=== PATIENT | male | born 1965 | race Caucasian/White ===

== ENCOUNTER 2022-12-06 07:00 | Day surgery (SDC) | payer OTHER ==
[2022-12-06] VITALS (227 sets, daily range): BP systolic 59–177; BP diastolic 36–109
[~2022-12-06] VITALS: Ht 182.9 cm; Wt 92.0 kg
[~2022-12-06 07:00] MED LIST: AMBIEN5 MG PO; AMITRIPTYLINE H75 M1; ATENOLOL25 MG PO; CLOPIDOGREL75 MG PO; GABAPENTIN100 MG PO; GRALISE; LIPITOR20 M1 PO; METFORMIN HCL500 M1 PO
--- NOTE | 2022-12-06 07:05 | NUR ---
Patient arrived to the [facility] suite, identification and demographics confirmed. Patient to room 10, AAO, ambulatory, vitals obtained, ID/allergy/fall bands placed, changed into hospital gown, MARILEE hose, and non-slip socks. Procedure and timeline explained for treatment and discharge. All questions answered and the patient presents no concerns at this time.
[2022-12-06 07:37] LABS: BASO% 0.6 % (0-3); EOS% 3.4 % (0-8); HEMATOCRIT 44.1 % (39.0-50.0); HEMOGLOBIN 14.6 g/dl (14.0-18.0); IMMATURE GRANULOCYTES 0.2 % (0.0-5.0); LYMPH% 32.3 % (15-41); MEAN CELL VOLUME 89.5 fL CALC (80.0-100.0); MEAN CORPUSCULAR HGB 29.6 pG CALC (26.0-32.0); MEAN CORPUSCULAR HGB CONC 33.1 g/dL CAL (32.0-36.0); MONO% 9.1 % (2-13); NEUT# 5.76 thou/uL (1.82-7.42); NEUT% 54.4 % (42-76); RED BLOOD COUNT 4.93 mill/uL (4.70-6.10); RED CELL DISTRI WIDTH 14.3 % (11.5-15.5)
--- NOTE | 2022-12-06 07:40 | NUR ---
Dr. Carlos Morgan telephoned with patient intake information including usage, dose, last dose/time taken and initial vital signs. Patient history and allergies reviewed with MD. Orders received for 10 + 5 prn mg PO Valium and 0.3 mg PO Clonidine now. Will reassess per protocol in 1.5 hours and update MD withassessment and vitals.
[2022-12-06 07:49] LABS: ALBUMIN 4.6 g/dL (3.2-5.0); ALKALINE PHOSPHATASE 113 u/l (38-126); ANION GAP 14 (6-22 (CALC)); BILIRUBIN, TOTAL 0.6 mg/dL (0.2-1.3); BUN 17 mg/dL (9-20); BUN/CREATININE RATIO 25 (12-20 (CALC)); CARBON DIOXIDE 29 mmol/l (22-30); CHLORIDE 101 mmol/l (95-108); CREATININE 0.7 mg/dL (0.7-1.3); GFR FOR AFR.AMER. > 60 ML/MIN (>=60 (CALC)); GFR OTHER RACES > 60 ML/MIN (>=60 (CALC)); POTASSIUM 4.5 mmol/l (3.5-5.1); SGOT/AST 25 u/l (17-59); SODIUM 140 mmol/l (137-146); TOTAL PROTEIN 7.6 g/dL (6.3-8.2)
--- NOTE | 2022-12-06 08:00 | NUR ---
Patient medicated per MD orders. In addition to Clonidine and Valium, patient received 1000 mcg B12 PO, 20 mg Pepcid PO, and Scopolamine TD patch. Medication indication and education provided prior to adminstration.
--- NOTE | 2022-12-06 08:45 | NUR ---
Patient resting comfortably in bed. Easily aroused, maintains focus, and drifts back to sleep. No signs of active withdrawal or distress noted at this time. Continuous SPO2, rhythm, and respiratory monitoring initiated. IVF @ 250 mL/HR, room air, VSS.
--- NOTE | 2022-12-06 09:30 | NUR ---
MD updated with 1.5 hour reassessment. Patient sleeping and vital signs are within pre-treatment parameters. No additional Clonidine or Valium at this time. Continuous monitoring in place.
--- NOTE | 2022-12-06 10:05 | NUR ---
Patient resting comfortably in bed. Easily aroused, maintains focus, and drifts back to sleep. No signs of withdrawal or distress noted at this time.
--- NOTE | 2022-12-06 10:25 | NUR ---
Dr. Morgan at bedside for evaluation of foot wound and pre-procedure assessment.
--- NOTE | 2022-12-06 11:00 | NUR ---
Nebulized treatment and Protonix administered per orders. Patient easily aroused, follows commands, appropriate conversation, reports no distress or withdrawal symtoms. Induction to begin in approximately 15 minutes.
--- NOTE | 2022-12-06 11:12 | NUR ---
Induction Note Patient to [facility] procedure room 10. Time out performed at 1112, patient placed on automatic dispenser mechanic, Lui hugger, and bilateral wrist restraints were applied for ET tube protection. Versed 5mg given IV push at 1113, tourniquet applied to LEFT arm, lidocaine 100 mg IVP given at 1115, followed by Rocuronium 10mg IVP at 1115 and held for 45 seconds. Propofol 140 mg IVP given at 1117. Succinylcholine 80 mg IVP at 1118. Smooth intubation with 7.5 ETT @ 22L at 1120. Positive color change on CO2 indicator. Positive auscultation for air exchange. Patient placed on ventilator for spontaneous ventilation. Placed on Propofol IV drip at 1120. OG inserted at 1123. Positive air on auscultation. Positive gastric content. Stomach washed at this time.
--- NOTE | 2022-12-06 11:35 | NUR ---
OG close note Stomach washed at this time. Naltrexone 50 mg with Clonidine 0.3 mg via OG tube. OG will be clamped for 45 minutes.
--- NOTE | 2022-12-06 12:20 | NUR ---
OG open note OG open at this time. Gastric content draining into drainage bag. OG to drain for 45 minutes. Propofol will be titrated down based on patient.
--- NOTE | 2022-12-06 13:10 | NUR ---
OG close note Stomach washed at this time. Naltrexone 50 mg with Clonidine 0.3 mg via OG tube. OG will be clamped for 45 minutes.
[2022-12-06] MEDS ORDERED: NALTREXONE50 MG PO (14:00)
[2022-12-06] MEDS ORDERED: CLONIDINE0.1 MG PO (14:00)
[2022-12-06] MEDS ORDERED: KLONOPIN2 MG PO (14:00)
--- NOTE | 2022-12-06 14:50 | NUR ---
OG close note Stomach washed at this time. Naltrexone 50 mg with Clonidine 0.2 mg via OG tube. OG will be clamped for 45 minutes.
--- NOTE | 2022-12-06 16:25 | NUR ---
No OG close at this time. Patient minimally reacting to treatment. Vitals, total Naltrexone & Clonidine, current Propofol infusion rate, treatment duration, and patient assessment discussed with Dr. Morgan. No orders for medication administration at this time. OG will remain open to allow time for patient to continue reacting to therapy.
--- NOTE | 2022-12-06 16:55 | NUR ---
OG close note Stomach washed at this time. Naltrexone 12.5 mg with Clonidine 0.2 mg via OG tube. OG will be clamped for 45 minutes.
--- NOTE | 2022-12-06 17:56 | NUR ---
Extubation note Closing medications given Benadryl 50mg IV push, Decadron 10mg IV push,Magnesium 4 grams IV, Zofran 8mg IV push, Octreotide 100mcg SC. Stomach washed out prior to extubation. Suctioned gastric content. OG removed. Patient extubated. Propofol Discontinued. Wrist restraints removed. Lui hugger Removed. See [facility] Moderate sedate recovery record for further notes and assessment.
--- NOTE | 2022-12-06 18:46 | NUR ---
CLEANSED OF SMALL SOFT BROWN STOOL. TOLERATED WELL. PT MOVING ABOUT IN BED. RESPONDS TO VERBAL STIMULI. VSS. TRANSPORTED TO MO VIA STRETCHER IN NO DISTRESS
--- NOTE | 2022-12-06 18:50 | NUR ---
Patient to room 291 in no acute distress. Transfer of care to Medical/Surgical [facility] SY Regan at bedside. 4L NC placed per orders, IVF to continue at 100ml/hr. VSS. Patient resting comfortably, no adventitious breath sounds appreciated. Bed alarm set. See chart/EMAR for procedural details and assessments. Handoff of care at the time of this note.
--- NOTE | 2022-12-06 18:50 | NUR ---
BEDSIDE REPORT RECEIVED FROM SY SPEARS. PATIENT RESTLESS. VSS, NO DISTRESS NOTED. BED IN LOW POSITION, LOCKED AND ALARM ACTIVATED.
--- NOTE | 2022-12-06 20:42 | NUR ---
2 PERSON ASSIST TO RESTROOM; TOLERATED WELL.
--- NOTE | 2022-12-07 00:18 | NUR ---
LAYING IN BED, RESTLESS. DENIES PAIN AT THIS TIME. NO DISTRESS NOTED. CALL LIGHT WITHIN REACH. BED ALARM ACTIVE.
[2022-12-07 03:33] VITALS: BP 120/46
--- NOTE | 2022-12-07 04:30 | NUR ---
PATIENT REMAINS RESTLESS. HAS NOT SLEPT ALL NIGHT IN SPITE OF SCHEDULED AND PRN MEDS GIVEN. NO COMPLAINTS OF PAIN. NO DISTRESS NOTED. CALL LIGHT WITHIN REACH. BED ALARM ACTIVE.
--- NOTE | 2022-12-07 05:02 | NUR ---
FULL ROLL INSPECTOR AT BEDSIDE FOR MORNING LABS. PATIENT BECAME AGITATED AND COMBATIVE. LABS WERE NOT DRAWN AT THIS TIME, WILL TRY LATER THIS A.M.
--- NOTE | 2022-12-07 05:30 | NUR ---
PATIENT BROKE J-LOOP LINE OF IV ACCESS, UNABLE TO RE-CONNECT. IV ACCESS DISCONTINUED, CATHETER INTACT. REFUSES TO HAVE ANOTHER IV SITE ACCESSED. AT THIS TIME PATIENT DOES NOT HAVE IV ACCESS.
--- NOTE | 2022-12-07 07:15 | NUR ---
SINTERING PRESS OPERATOR AT BEDSIDE FOR MORNING LABS. PATIENT YELLING AND THRASHING AROUND. PATIENT REFUSING LABS AT THIS TIME, ONCOMING NURSE AWARE.
[2022-12-07 07:23] VITALS: BP 126/52
[2022-12-07 07:25] VITALS: BP 126/52
--- NOTE | 2022-12-07 08:08 | NUR ---
PT LAYING IN BED WITH HOB UP, AWAKE AND ALERT. PT IS ORIENTED TO SELF BUT NOT PLACE AND TIME. PT HAS NO C/O PAIN AT THIS TIME. PT IS SLIGHTY AGITATED BUT ABLE TO COMFORT BY TALKING. PT HAS URINAL AT BEDSIDE AND HE IS AWARE. CALL LIGHT WITHIN REACH, BED IN LOWEST POSITION AND BED ALARM ON. WILL CONTINUE TO MONITOR PT CLOSELY.
[2022-12-07 08:30] LABS: BASO% 0.1 % (0-3); IMMATURE GRANULOCYTES 0.2 % (0.0-5.0); LYMPH% 9.6 % (15-41); MEAN CELL VOLUME 87.6 fL CALC (80.0-100.0); MEAN CORPUSCULAR HGB 29.2 pG CALC (26.0-32.0); MEAN CORPUSCULAR HGB CONC 33.3 g/dL CAL (32.0-36.0); MONO% 6.6 % (2-13); NEUT# 13.72 thou/uL (1.82-7.42); NEUT% 83.5 % (42-76); RED BLOOD COUNT 4.45 mill/uL (4.70-6.10); RED CELL DISTRI WIDTH 13.6 % (11.5-15.5)
[2022-12-07 08:54] LABS: ALKALINE PHOSPHATASE 107 u/l (38-126); ANION GAP 12 (6-22 (CALC)); BILIRUBIN, TOTAL 0.4 mg/dL (0.2-1.3); BUN 13 mg/dL (9-20); BUN/CREATININE RATIO 22 (12-20 (CALC)); CARBON DIOXIDE 24 mmol/l (22-30); CHLORIDE 106 mmol/l (95-108); CREATININE 0.6 mg/dL (0.7-1.3); GFR FOR AFR.AMER. > 60 ML/MIN (>=60 (CALC)); GFR OTHER RACES > 60 ML/MIN (>=60 (CALC)); MAGNESIUM 2.2 mg/dL (1.6-2.3); POTASSIUM 4.4 mmol/l (3.5-5.1); SGOT/AST 30 u/l (17-59); SODIUM 137 mmol/l (137-146); TOTAL PROTEIN 6.7 g/dL (6.3-8.2)
--- NOTE | 2022-12-07 09:30 | NUR ---
NEW IV SITE STARTED # 20 TO THE [facility] BY SY SANCHES. PT TOLERATED WELL. RESUMED LR @125 ML/HR. PT C/O HAVING RESTLESS LEGS, PRN MEDICATIONS GIVEN, WILL REASSES. PT HAS CALL LIGHT WITHIN REACH AND ALL SAFETY MEASURES IN PLACE. WILL CONTINUE TO MONITOR PT CLOSELY.
[2022-12-07 10:17] VITALS: BP 132/63
[2022-12-07 10:19] VITALS: BP 132/63
--- NOTE | 2022-12-07 12:00 | NUR ---
PT SITTING UP IN BED AWAKE AND ALERT, REORIENTED TO PLACE AN TIME. PT HAS NO C/O PAIN AT THIS ITME. NO CHANGE IN PT STATUS. CALL LIGHT WITHIN REACH AND ALL SAFETY MEASURES IN PLACE.
--- NOTE | 2022-12-07 16:00 | NUR ---
PT LAYING IN BED WITH HOB ALERT AND AWAKE. ORIENTED TO PERSON AND PLACE. PT HAS NO C/O PAIN . NO CHANGE IN PT STATUS AT THIS TIME.
--- NOTE | 2022-12-07 16:43 | NUR ---
Discharge instructions given. Patient verbalizes understanding of same. Discharged in stable condition via Wheelchair to Home with staff. All belongings sent with pt.
== END 2022-12-07 16:45 | disposition home or self-care (01) | DRG 897 ==
LOC: MS2 07:00 → ANR 07:00
PROVIDERS: ATTEND Anesthesiology Critical Care Medicine
DX: F11.20 Opioid dependence, uncomplicated (principal)
CPT/HCPCS: J0131; J2060; J2354; J3475